=== PATIENT | female | born 1940 | race Caucasian/White ===

== ENCOUNTER 2017-04-25 12:25 | Outpatient (CLI) | payer MEDICARE, BC ==
--- NOTE | 2017-04-25 14:11 | MMO ---
RIGHT BREAST DIAGNOSTIC MAMMOGRAM: HISTORY: Focal asymmetry right breast. COMPARISON: Screening mammogram 04/13/17. FINDINGS: Heterogeneously dense breasts. The focal asymmetry compresses out and corresponds to benign fibrogl andular tissue. IMPRESSION: BI-RADS 2: benign findings. Routine annual screening mammography (for women over age 40) POS: BETTY
== END 2017-04-25 12:26 | disposition home or self-care (01) ==
LOC: MAMMO 12:25
PROVIDERS: ATTEND Internal Medicine
DX: R92.2 Inconclusive mammogram (principal)
CPT/HCPCS: G0206-RT